=== PATIENT | female | born 1995 | race Two or more races ===

== ENCOUNTER 2022-12-30 07:56 | Emergency (ER) | payer OTHER ==
[~2022-12-30] VITALS: Ht 154.9 cm; Wt 63.5 kg
[2022-12-30] MEDS ORDERED: CELEBREX200MG PO (11:20)
[2022-12-30] MEDS ORDERED: TYLENOL ARTHRI650 MG PO (11:20)
[2022-12-30] MEDS ORDERED: MEDROLPACK PO (11:20)
[2022-12-30] MEDS ORDERED: METAXALONE800 MG PO (11:20)
== END 2022-12-30 11:26 | disposition home or self-care (01) ==
LOC: ER 07:56
DX: M54.12 Radiculopathy, cervical region (principal); S16.1XXA Strain of muscle, fascia and tendon at neck level, initial encounter